=== PATIENT | male | born 1960 | race Hispanic/Latino ===

== ENCOUNTER 2022-08-30 11:16 | Emergency (ER) | payer OTHER ==
[~2022-08-30] VITALS: Ht 165.1 cm; Wt 90.7 kg
[2022-08-30] MEDS ORDERED: MILLIPRED DP5 MG PO (14:57)
[2022-08-30] MEDS ORDERED: CYCLOBENZAPRINE5 MG PO (14:57)
== END 2022-08-30 15:16 | disposition home or self-care (01) ==
LOC: ER 11:38
DX: M79.652 Pain in left thigh (principal); M25.512 Pain in left shoulder; M25.562 Pain in left knee; R10.9 Unspecified abdominal pain; W01.0XXA Fall on same level from slipping, tripping and stumbling without subsequent striking against object, initial encounter; Y93.01 Activity, walking, marching and hiking; Y92.89 Other specified places as the place of occurrence of the external cause; I10 Essential (primary) hypertension; E78.5 Hyperlipidemia, unspecified; I48.91 Unspecified atrial fibrillation; I69.354 Hemiplegia and hemiparesis following cerebral infarction affecting left non-dominant side; Z85.46 Personal history of malignant neoplasm of prostate
CPT/HCPCS: 99283